=== PATIENT | female | born 1985 | race Caucasian/White ===

== ENCOUNTER 2017-09-08 14:26 | Emergency (ER) | payer MEDICAID ==
[~2017-09-08] VITALS: Ht 160 cm; Wt 56.6 kg
[2017-09-08 14:36] VITALS: Ht 160 cm; Wt 56.6 kg
[2017-09-08] MEDS ORDERED: LIDOCAINE/MYLANTA 40 ML BTL PO STA (15:21)
[2017-09-08] MEDS ORDERED: HYDROCODONE/APAP (5/325) TAB PO ONE (15:30)
[2017-09-08 15:38] LABS: BASOPHILS % 0.1 % (0.0-2.0); EOSINOPHILS # 0.1 10^3/ul (0.0-0.5); EOSINOPHILS % 0.8 % (0.0-7.0); HEMOGLOBIN 13.8 g/dl (12.0-16.0); MEAN CORPUSCULAR HEMOGLOBIN 29.9 pg (29.0-33.0); MEAN CORPUSCULAR HGB CONC 33.7 g/dl (32.0-37.0); MEAN CORPUSCULAR VOLUME 88.7 fl (82.0-101.0); MEAN PLATELET VOLUME 10.2 fl (7.4-10.4); MONOCYTE # 0.5 10^3/ul (0.3-0.9); NEUTROPHIL # 5.9 10^3/ul (1.6-7.5); NEUTROPHILS % 69.6 % (39.0-77.0); PLATELET COUNT 247 10^3/UL (140-415); RED BLOOD COUNT 4.62 10^6/ul (4.20-5.40); RED CELL DISTRIBUTION WIDTH 12.1 % (11.5-14.5); WHITE BLOOD COUNT 8.5 10^3/ul (4.8-10.8)
[2017-09-08 15:58] LABS: ADD UMIC YES; UR ASCORBIC ACID NEGATIVE (NEGATIVE); UR BACTERIA FEW /HPF (NONE SEEN); UR BILIRUBIN (Dip) NEGATIVE (NEGATIVE); UR BLOOD (Dip) 2+ mg/dL (NEGATIVE); UR CLARITY CLEAR (CLEAR); UR COLOR STRAW (YELLOW); UR GLUCOSE (Dip) NEGATIVE (NEGATIVE); UR KETONES (Dip) NEGATIVE (NEGATIVE); UR LEUKOCYTE ESTERASE (Dip) 2+ Leu/ul (NEGATIVE); UR NITRITE (Dip) NEGATIVE (NEGATIVE); UR RBC 2 /HPF (0-5); UR SPECIFIC GRAVITY (Dip) 1.005 (1.003-1.030); UR SQUAMOUS EPITHELIAL CELL FEW /HPF (FEW); UR TOTAL PROTEIN (Dip) NEGATIVE (NEGATIVE); UR UROBILINOGEN (Dip) NEGATIVE (NEGATIVE)
[2017-09-08 16:02] LABS: ALBUMIN 4.6 g/dl (3.3-4.9); ALBUMIN/GLOBULIN RATIO 1.24; BILIRUBIN,INDIRECT 0.4 mg/dl (0-1.1); BILIRUBIN,TOTAL 0.4 mg/dl (0.2-1.3); CALCIUM 9.5 mg/dl (8.4-10.2); CREATININE 0.63 mg/dl (0.44-1.00); POTASSIUM 4.1 mmol/L (3.5-5.1); TOTAL PROTEIN 8.3 g/dl (6.1-8.1)
[2017-09-08] MEDS ORDERED: HYDR-906 PO (16:58)
[2017-09-08] MEDS ORDERED: OMEP20CA16 PO (16:58)
[2017-09-08] MEDS ORDERED: RANI150T9 PO (16:58)
--- NOTE | 2017-09-08 17:08 | ERD ---
ER Documentation Chief Complaint Chief Complaint epigastric pain x3 days, diarrhea 1st day, HPI 32-year-old female with a history of gastritis comes in with epigastric abdominal pain 3 days and loose stools. She describes as burning pain that is localized in epigastric region, moderate to severe. She has not had any blood in his stools or dark stools or hematochezia. Denies fevers, chills, chest pain , shortness breath. ROS All systems reviewed and are negative except as per history of present illness. Medications Home Meds Active Scripts Omeprazole* (Omeprazole*) 20 Mg Capsule.dr, 20 MG PO DAILY, #60 Prov:GALLITO BRASHER PA-C 09/08/17 Ranitidine Hcl* (Zantac*) 150 Mg Tablet, 150 MG PO BID Y for EPIGASTRIC PAIN, # 30 TAB Prov:GALLITO BRASHER PA-C 09/08/17 Hydrocodone/Acetaminophen ([place] 5-325 Tablet) 1 Each Tablet, 1 TAB PO Q6H Y for PAIN, #7 TAB Prov:GALLITO BRASHER PA-C 09/08/17 Allergies Allergies: Coded Allergies: No Known Allergy (Unverified , 09/08/17) PMhx/Soc Medical and Surgical Hx: pt denies Medical Hx, pt denies Surgical Hx Hx Alcohol Use: Yes (social) Hx Substance Use: No Hx Tobacco Use: No Smoking Status: Never smoker Physical Exam Vitals Vital Signs Date Time Temp Pulse Resp B/P Pulse Ox O2 Delivery O2 Flow Rate FiO2 09/08/17 14:36 97.9 90 18 128/75 98 Physical Exam General: Well-developed, well-nourished. The patient appears in no acute distress. HEENT: Head is normocephalic, atraumatic. No scleral icterus. Neck: Supple. Nontender. Lungs: Clear to auscultation. Normal air movement. Heart: Regular rate and rhythm. S1 and S2 are normal. No murmurs, gallops, or rubs. Abdomen: Soft, nontender, nondistended. Bowel sounds are normoactive. Extremities: No clubbing or cyanosis. Normal pulses. Moving extremities x 4. No weakness. Neurologic: Alert and oriented 3. No focal deficits. Skin: Normal turgor. No rash or lesions. Result Diagram: 09/08/17 1532 09/08/17 1532 Results 24 hrs Laboratory Tests Test 09/08/17 15:21 09/08/17 15:32 09/08/17 15:40 Serum HCG, Qualitative NEGATIVE White Blood Count 8.510^3/ul Red Blood Count 4.6210^6/ul Hemoglobin 13.8g/dl Hematocrit 41.0% Mean Corpuscular Volume 88.7fl Mean Corpuscular Hemoglobin 29.9pg Mean Corpuscular Hemoglobin Concent 33.7g/dl Red Cell Distribution Width 12.1% Platelet Count 02343^3/UL Mean Platelet Volume 10.2fl Neutrophils % 69.6% Lymphocytes % 23.0% Monocytes % 6.0% Eosinophils % 0.8% Basophils % 0.1% Nucleated Red Blood Cells % 0.0/100WBC Neutrophils # 5.910^3/ul Lymphocytes # 2.010^3/ul Monocytes # 0.510^3/ul Eosinophils # 0.110^3/ul Basophils # 0.010^3/ul Nucleated Red Blood Cells # 0.010^3/ul Sodium Level 142mmol/L Potassium Level 4.1mmol/L Chloride Level 103mmol/L Carbon Dioxide Level 30mmol/L Anion Gap 13 Blood Urea Nitrogen 7mg/dl Creatinine 0.63mg/dl Glucose Level 97mg/dl Calcium Level 9.5mg/dl Total Bilirubin 0.4mg/dl Direct Bilirubin 0.00mg/dl Indirect Bilirubin 0.4mg/dl Aspartate Amino Transf (AST/SGOT) 29IU/L Alanine Aminotransferase (ALT/SGPT) 47IU/L Alkaline Phosphatase 72IU/L Total Protein 8.3g/dl Albumin 4.6g/dl Globulin 3.70g/dl Albumin/Globulin Ratio 1.24 Lipase 84U/L Urine Color STRAW Urine Clarity CLEAR Urine pH 6.0 Urine Specific [place] 1.005 Urine Ketones NEGATIVEmg/dL Urine Nitrite NEGATIVEmg/dL Urine Bilirubin NEGATIVEmg/dL Urine Urobilinogen NEGATIVEmg/dL Urine Leukocyte Esterase 2+Luther/ul Urine Microscopic RBC 2/HPF Urine Microscopic WBC 2/HPF Urine Squamous Epithelial Cells FEW/HPF Urine Bacteria FEW/HPF Urine Hemoglobin 2+mg/dL Urine Glucose NEGATIVEmg/dL Urine Total Protein NEGATIVEmg/dl Current Medications Medications (Trade) Dose Ordered Sig/Jose Route PRN Reason Start Time Stop Time Status Last Admin Dose Admin Miscellaneous Medication (Gi Cocktail (2)) 40 ml ONCE STAT PO 09/08/17 15:21 09/08/17 15:22 DC 09/08/17 15:31 Acetaminophen/ Hydrocodone Bitart ([place] (5/325)) 1 tab ONCE ONCE PO 09/08/17 15:30 09/08/17 15:31 DC 09/08/17 15:31 Procedures/MDM 32-year-old female comes with epigastric abdominal pain, consistent with gastritis versus GERD. Patient had labwork done that was normal today, no leukocytosis, transaminitis, or pancreatitis. Patient's pain was treated with a gi cocktail and norco and had serial abdominal exams and felt better. Patient likely presents with gastritis. No evidence of any surgical abdominal process. Patient has a history of gastritis and will be continued on pain medication at home. Br[place]hall will be given for severe pain, as ranitidine and omeprazole. Patient does not have any urinary complaints, I doubt UTI, sepsis. Departure Diagnosis: Primary Impression: Epigastric pain Condition: Good Patient Instructions: Treating Gastritis GALLITO BRASHER PA-C Sep 08, 2017 17:08
== END 2017-09-08 17:07 | disposition home or self-care (01) ==
LOC: FTE 14:26
DX: R10.13 Epigastric pain (principal)
CPT/HCPCS: 80053; 81001; 83690; 84703; 85025; Z7502; Z7610; 99283

== ENCOUNTER 2018-10-28 15:29 | Emergency (ER) | payer MEDICAID ==
[~2018-10-28] VITALS: Ht 149.9 cm; Wt 54.8 kg
[~2018-10-28 15:29] MED LIST: HYDR-4011 PO; OMEP20CA16 PO; RANI150T35 PO
[2018-10-28 15:46] VITALS: BP 129/74; PULSE 80; RESP 16; Ht 149.9 cm; Wt 54.8 kg
[2018-10-28] MEDS ORDERED: BENZ-6 PO (16:41)
[2018-10-28] MEDS ORDERED: PROM6.2515 PO (16:41)
--- NOTE | 2018-10-28 18:12 | ERD ---
ER Documentation Chief Complaint Chief Complaint COUGH AND SOB W/ PHLEGM AND SOME BLOOD X 3 WEEKS HPI 33-year-old female presenting with cough times 2 weeks. She states is a dry cough. She has been taking Robitussin with no alleviation. Denies fever. Denies other medical problems. NKDA. Surgical history denies. Social history denies ROS All systems reviewed and are negative except as per history of present illness. Medications Home Meds Active Scripts Promethazine Hcl* (Promethazine Hcl* Syrup) 6.25 Mg/5 Ml Syrup, 6.25 MG PO Q6H PRN for COUGH, #100 ML Prov:FRANCIS SANTANA PA-C 10/28/18 Benzonatate* (Tessalon Perle*) 100 Mg Capsule, 100 MG PO Q8H PRN for COUGH, #30 CAP Prov:FRANCIS SANTANA PA-C 10/28/18 Omeprazole* (Omeprazole*) 20 Mg Capsule.dr, 20 MG PO DAILY, #60 Prov:GALLITO BRASHER PA-C 09/08/17 Ranitidine Hcl* (Zantac*) 150 Mg Tablet, 150 MG PO BID PRN for EPIGASTRIC PAIN, #30 TAB Prov:GALLITO BRASHER PA-C 09/08/17 Hydrocodone/Acetaminophen ([place] 5-325 Tablet) 1 Each Tablet, 1 TAB PO Q6H PRN for PAIN, #7 TAB Prov:GALLITO BRASHER PA-C 09/08/17 Allergies Allergies: Coded Allergies: No Known Allergy (Unverified , 10/28/18) PMhx/Soc Medical and Surgical Hx: pt denies Medical Hx, pt denies Surgical Hx Hx Alcohol Use: Yes (social) Hx Substance Use: No Hx Tobacco Use: No Smoking Status: Never smoker FmHx Family History: No diabetes, No coronary disease, No other Physical Exam Vitals Vital Signs Date Temp Pulse Resp B/P (MAP) Pulse Ox O2 O2 Flow FiO2 Time Delivery Rate 10/28/18 97.9 80 16 129/74 98 15:46 (92) Physical Exam GENERAL: The patient is well-appearing, well-nourished, in no acute distress HEENT: Atraumatic. Conjunctivae are pink. Pupils equal, round, and reactive to light. There is no scleral icterus. Tympanic membranes clear bilaterally. Oropharynx clear. NECK: C-spine is soft and supple. There is no meningismus. There is no cervical lymphadenopathy. CHEST: Clear to auscultation bilaterally. There are no rales, wheezes or rhonchi. HEART: Regular rate and rhythm. No murmurs, clicks, rubs or gallops. No S3 or S4. Procedures/MDM DIAGNOSTIC IMAGING REPORT Patient: CLAUDETTE PEREZ : 1985 Age: 33 Sex: F MR #: [id number] DOS: 10/28/18 1620 Ordering MD: VICKY SANTANA PA-C Location: [facility] Room/Bed: PROCEDURE: XR Chest. CLINICAL INDICATION: cough TECHNIQUE: Single frontal view of the chest was obtained COMPARISON: None FINDINGS: The heart and mediastinum are within normal limits. The lungs are clear. There is no pleural effusion or pneumothorax. RPTAT: AA IMPRESSION: No acute disease. MDM: 33-year-old female presenting with cough. I have low suspicion for respiratory distress or hypoxia. Patient's vitals are stable and exam is non- concerning. Patient's x-ray is within normal limits. I do not feel patient requires antibiotics. Patient will be discharged with supportive medications. Patient is told if symptoms change or worsen to immediately return to the ER. All questions answered at discharge Departure Diagnosis: Primary Impression: Cough Condition: Stable Patient Instructions: Cough, Chronic, Uncertain Cause, (Adult) Referrals: [facility] YOU HAVE RECEIVED A MEDICAL SCREENING EXAM AND THE RESULTS INDICATE THAT YOU DO NOT HAVE A CONDITION THAT REQUIRES URGENT TREATMENT IN THE EMERGENCY DEPARTMENT. FURTHER EVALUATION AND TREATMENT OF YOUR CONDITION CAN WAIT UNTIL YOU ARE SEEN IN YOUR DOCTORS OFFICE WITHIN THE NEXT 1-2 DAYS. IT IS YOUR RESPONSIBILITY TO MAKE AN APPOINTMENT FOR FOLOW-UP CARE. IF YOU HAVE A PRIMARY DOCTOR --you should call your primary doctor and schedule an appointment IF YOU DO NOT HAVE A PRIMARY DOCTOR YOU CAN CALL OUR PHYSICIAN REFERRAL HOTLINE AT IF YOU CAN NOT AFFORD TO SEE A PHYSICIAN YOU CAN CHOSE FROM THE FOLLOWING [facility] [address] [facility]. [facility] [address] [facility] [facility] [address] [facility] [facility] [address] [facility]. [facility] [address] [facility]. [facility] [address] Additional Instructions: FOLLOW UP WITH YOUR PRIMARY CARE PHYSICIAN TOMORROW.Return to this facility if you are not improving as expected. FRANCIS SANTANA PA-C Oct 28, 2018 18:12
== END 2018-10-28 17:16 | disposition home or self-care (01) ==
LOC: FTE 15:29
DX: R05 Cough (principal)
CPT/HCPCS: 71045; Z7502